=== PATIENT | male | born 1970 | race Caucasian/White ===

== ENCOUNTER → 2017-07-02 | Outpatient (CLI) | payer OTHER ==
[~2017-07-02] MED LIST: CATHETER FLUSH 10 ML SYR IV PRN; IOHEXOL 350 MG/ML 100 ML (OMNIPAQUE 350) VIAL IV ONE; NS 100 ML (IVPB) BAG IV ONE
--- NOTE | 2017-07-02 14:19 | Diagnostic Imaging Report ---
PROCEDURE: CT chest with contrast only. TECHNIQUE: Multiple contiguous axial images were obtained through the chest after administration of intravenous contrast. INDICATION: Chest pain. Cough. COMPARISON: None. FINDINGS: Evaluation of the cardiomediastinal structures shows normal heart size. There is no large pericardial effusion. No pathologically enlarged or morphologically abnormal adenopathy is seen within the mediastinum, yesenia, nor axilla. Evaluation of the lung marks demonstrates no focal consolidation, pleural effusion, nor pneumothorax. No pulmonary nodules or masses are seen. Bony structures show no acute abnormalities. No lytic or blastic osseous lesions are seen. Included portions of the upper abdomen show no additional acute abnormalities. IMPRESSION: 1. Normal CT chest. No acute cardiopulmonary process is identified. Dictated by: Dictated on workstation # [id number]
== END ==
LOC: RAD 12:32
PROVIDERS: ATTEND Nurse Practitioner Family
DX: R05 Cough (principal); Z72.0 Tobacco use
CPT/HCPCS: 71260